=== PATIENT | female | born 1970 | race Caucasian/White ===

== ENCOUNTER 2016-10-27 21:34 | Emergency (ER) | payer MEDICAID ==
[~2016-10-27] VITALS: Ht 175.3 cm; Wt 67.6 kg
--- NOTE | 2016-10-27 21:40 | NUR ---
Patient to ER bed 05 to gown for evaluation. Side rails up. Report given to KAYLA.
--- NOTE | 2016-10-27 21:50 | NUR ---
DR. RICO AT BEDSIDE EXAMINING THE PT.
--- NOTE | 2016-10-27 21:55 | NUR ---
PT. BROUGHT IN BY THE AMBULANCE FOR NEAR SYNCOPE EPISODE THAT HAPPENED AT [facility], STATES NO KO, PER PT. IT IS VERY COMMON FOR HER TO HAVE FAINTING SPELL DUE TO HER LOW BLOOD PRESSURE CONDITION, STATES THAT SHE IS NOT TAKING ANY MEDICATION, HX OF LUPUS AND MS, STATES THAT SHE HAS BILATERAL ELBOW PAIN 02/28, DENIES SOB, N/V DENIES HEADACHE, CLEAR SPEECH, FOLLOWS COMMANDS
[2016-10-27 22:03] VITALS: BP 104/60; PULSE 104; RESP 20; TEMP 98.4; O2SAT 99
--- NOTE | 2016-10-27 22:40 | NUR ---
DR. RICO AT BEDSIDE EXPLAINING PLAN OF CARE TO PT.
[2016-10-27 23:12] LABS: BASOPHILS # (AUTO) 0.1 K/uL (0.0-0.2); EOSINOPHILS # (AUTO) 0.2 K/uL (0.0-0.4); EOSINOPHILS % (AUTO) 3.1 % (0.0-4.0); HEMATOCRIT 36.4 % (36-48); HEMOGLOBIN 12.3 g/dL (12.0-16.0); LYMPHOCYTES # (AUTO) 2.3 K/uL (1.0-5.5); LYMPHOCYTES % (AUTO) 29.1 % (20.5-51.5); MEAN CORPUSCULAR HEMOGLOBIN 34 pg (27-31); MEAN CORPUSCULAR HGB CONC 34 % (32-36); MEAN CORPUSCULAR VOLUME 100 fL (79.0-98.0); MONOCYTES # (AUTO) 0.9 K/uL (0.0-1.0); MONOCYTES % (AUTO) 11.2 % (1.7-9.3); NEUTROPHILS # (AUTO) 4.4 K/uL (1.8-7.7); NEUTROPHILS % (AUTO) 55.6 % (40.0-70.0); PLATELET COUNT (AUTO) 297 K/uL (130-430); RED BLOOD CELL COUNT(AUTO) 3.66 MIL/uL (4.2-6.2); RED CELL DISTRIBUTION WIDTH 12.3 % (9.0-15.0); WHITE BLOOD COUNT (AUTO) 7.9 K/uL (4.8-10.8)
--- NOTE | 2016-10-27 23:15 | NUR ---
Patient given written and verbal discharge instructions and verbalizes understanding. ER MD dr. pardo discussed with patient the results and treatment provided. Patient in stable condition. ID arm band removed. no Rx given. Patient educated on pain management and to follow up with PMD. Pain Scale 0/10 Opportunity for questions provided and answered.
[2016-10-27 23:16] VITALS: BP 112/62; PULSE 89; RESP 20; TEMP 98.4; O2SAT 99
[2016-10-27 23:17] LABS: CALCIUM 8.7 mg/dL (8.4-11.0); CREATININE 0.65 mg/dL (0.55-1.30); POTASSIUM 3.3 mmol/L (3.5-5.1)
[2016-10-27 23:22] LABS: ALBUMIN 3.7 g/dL (3.4-4.8); TOTAL BILIRUBIN 0.2 mg/dL (0.0-1.0); TOTAL PROTEIN, SERUM 7.7 g/dL (6.4-8.3)
== END 2016-10-27 23:16 | disposition home or self-care (01) ==
LOC: SED 21:34
DX: R55 Syncope and collapse (principal); R42 Dizziness and giddiness
CPT/HCPCS: 36415; 80053; 81025; 85025; 93005; 99285